=== PATIENT | male | born 2005 | race Two or more races ===

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

== ENCOUNTER 2023-07-18 08:10 | Emergency (ER) | payer MEDICAID ==
[~2023-07-18] VITALS: Ht 180.3 cm; Wt 116.5 kg
[2023-07-18 08:17] VITALS: BP 122/71; PULSE 57; RESP 20; TEMP 98.2; O2SAT 97
[2023-07-18] MEDS ORDERED: KETOROLAC TROMETH 60MG/2ML VIAL IM ONE (10:00)
[2023-07-18] MEDS ORDERED: HYDROcodone-ACET 10/325MG TAB PO ONE (10:00)
[2023-07-18] MEDS ORDERED: ACE3T PO (10:49)
[2023-07-18] MEDS ORDERED: CEPH500C PO (10:49)
[2023-07-18] MEDS ORDERED: IBUP-1455 PO (10:49)
== END 2023-07-18 11:08 | disposition home or self-care (01) ==
LOC: ER 08:10
DX: S30.0XXA Contusion of lower back and pelvis, initial encounter (principal); V86.59XA Driver of other special all-terrain or other off-road motor vehicle injured in nontraffic accident, initial encounter; Y93.89 Activity, other specified; Y92.89 Other specified places as the place of occurrence of the external cause; Y99.8 Other external cause status
CPT/HCPCS: 72100; 72220; 96372; 99284; J1885

== ENCOUNTER 2024-12-11 17:14 | Emergency (ER) | payer MEDICAID ==
[~2024-12-11] VITALS: Ht 182.9 cm; Wt 114.0 kg
[~2024-12-11 17:14] MED LIST: ACE3T PO; CEPH500C PO; IBUP-1455 PO
[2024-12-11 18:28] VITALS: BP 109/58; PULSE 66; RESP 18; TEMP 97; O2SAT 97
[2024-12-11] MEDS ORDERED: IBUP-1456 PO (18:59)
--- NOTE | 2024-12-11 18:59 | ED.PDOC ---
Musculoskeletal HPI Comments 19-YEAR-OLD MALE PRESENTS TO ER WITH COMPLAINTS OF LEFT ANKLE PAIN X1 HOUR. PATIENT REPORTS HE FELT A POPPING SENSATION/SUDDEN ONSET PAIN TO LEFT POSTERIOR ANKLE WHILE HE WAS PLAYING BASKETBALL 1 HOUR PRIOR TO ARRIVAL TO ER. DENIES TRAUMA/FALLS. HE RATES HIS CURRENT PAIN A 4/10 TO LEFT POSTERIOR ANKLE WITH RADIATION UPWARDS TOWARDS HIS LEFT ACHILLES TENDON. DENIES USE OF MEDICATIONS FOR CURRENT SYMPTOMS. PATIENT PRESENTS TO ER AMBULATORY ON ARRIVAL, FAVORING RIGHT LEG ON AMBULATION. DENIES NUMBNESS/TINGLING, LEFT FOOT PAIN, LEFT TIB-FIB PAIN OR ANY FURTHER SYMPTOMS/COMPLAINTS Chief Complaint: Lower Extremity Time Seen by MD: 18:09 Primary Care Provider: REHANA Rajan Notes: Nurses Notes, Medications, Allergies Allergies: Coded Allergies: NO KNOWN ALLERGIES (Unverified , 03/16/17) Home Meds Active Scripts Ibuprofen (Ibuprofen) 800 Mg Tab, 1 TAB PO TID PRN, #30 TAB 0 Refills Prov:ROYAL VILLELA 12/11/24 Acetaminophen W/ Codeine (Tylenol W/Cod #3) 1 Tab Tb, 1 TAB PO Q6HP PRN, #30 TAB Prov:ASIF JACKSON PAC 07/18/23 Ibuprofen Micronized (Ibuprofen) 800 Mg Tab, 800 MG PO Q8HP PRN, #30 TAB Prov:ASIF JACKSON PAC 07/18/23 Cephalexin Monohydrate (Cephalexin) 500 Mg Cap, 1 CAP PO QID for 7 Days, #28 CAP Prov:ASIF JACKSON PAC 07/18/23 Information Source: Patient Mode of Arrival: Ambulatory Past Medical History PAST MEDICAL HISTORY: Denies Surgical History: Denies all surgeries Family History Family History: Unknown Social History Smoker: Non-Smoker Alcohol: Denies ETOH Use Drugs: Denies Drug Use Lives In: Home Constitutional: denies: chills, diaphoresis, fatigue, fever, malaise, sweats, weakness, others EENTM: denies: blurred vision, double vision, ear bleeding, ear discharge, ear drainage, ear pain, ear ringing, eye pain, eye redness, hearing loss, mouth pain, mouth swelling, nasal discharge, nose bleeding, nose congestion, nose pain, photophobia, tearing, throat pain, throat swelling, voice changes, others Respiratory: denies: cough, hemoptysis, orthopnea, SOB at rest, shortness of breath, SOB with excertion, stridor, wheezing, others Cardiovascular: denies: chest pain, dizzy spells, diaphoresis, Dyspnea on exertion, edema, irregular heart beat, left arm pain, lightheadedness, palp itations, PND, syncope, others Gastrointestinal: denies: abdomen distended, abdominal pain, blood streaked bowels, constipated, diarrhea, dysphagia, difficulty swallowing, hematemesis, melena, nausea, poor appetite, poor fluid intake, rectal bleeding, rectal pain, vomiting, others Genitourinary: denies: burning, dysuria, flank pain, frequency, hematuria, incontinence, penile discharge, penile sore, pain, testicle pain, testicle swelling, urgency, others Neurological: denies: dizziness, fainting, headache, left sided numbness, left sided weakness, numbness, paresthesia, pre-existing deficit, right sided numbness, right sided weakness, seizure, speech problems, tingling, tremors, weakness, others Musculoskeletal: reports: others ( STATED IN HPI) Integumetry: denies: bruises, change in color, change in hair/nails, dryness, laceration, lesions, lumps, rash, wounds, others Allergic/Immunocompromised: denies: Difficulty Healing, Frequent Infections, Hives, Itching, others Hematologic/Lymphatic: denies: anemia, blood clots, easy bleeding, easy bruising, swollen glands, others Endocrine: denies: excessive hunger, excessive sweating, excessive thirst, excessive urination, flushing, intolerance to cold, intolerance to heat, unexplained weight gain, unexplained weight loss, others Psychiatric: denies: anxiety, bipolar disorder, depression, hopeless, panic disorder, schizophrenia, sleepless, suicidal, others Physical Exam General Appearance: Mild Distress, Obese HEENT: PERRL/EOMI Neck: Full Range of Motion, Non-Tender, Normal Respiratory: Chest Non-Tender, Lungs Clear, No Accessory Muscle Use, No Respiratory Distress, Normal Breath Sounds Cardiovascular: No Murmur, No Gallop, Regular Rate/Rhythm Breast Exam: Deferred Gastrointestinal: NOT DONE Genitalia: Deferred Pelvic: Deferred Rectal: Deferred Extremities: No calf tenderness, Normal capillary refill Musculoskeletal : Extremity Location: Ankle (TTP/MILD SWELLING NOTED TO LEFT POSTERIOR ANKLE AND REGION OF LEFT ACHILLES TENDON. POSITIVE NUGENT'S TEST ON LEFT. NO TTP TO LEFT FOOT OR LEFT TIB/FIB NOTED. PATIENT FAVORS RIGHT LEG ON AMBULATION DUE TO PAIN LOCALIZED TO LEFT POSTERIOR ANKLE AND TO LEFT ACHILLES TENDON) Neurologic: Alert, product safety coordinator II-XII nml as Tested, No Motor Deficits, No Sensory Deficits Cerebellar Function: Normal Reflexes: Normal Skin: Dry, Normal Color, Warm Peripheral Pulses: 2+ femoral (R), 2+ femoral (L), 2+ dorsalis pedis (R), 2+ dorsalis pedis (L) Lymphatic: No Adenopathy Was a procedure done? Was a procedure done?: No Sedation Sedation?: No Differential Diagnosis EXT Differential Diagnosis: Fracture, Dislocation, Neurovascular injury X-Ray, Labs, Meds, VS Vital Signs Date Time Temp Pulse Resp B/P (MAP) Pulse Ox O2 Delivery O2 Flow Rate FiO2 12/11/24 18:28 97.0 66 18 109/58 (75) 97 97.0 12/11/24 18:28 66 18 97 Room Air 12/11/24 17:40 97.0 66 18 109/57 (74) 97 PATIENT: CANDELARIO CONNOLLYACCT: [id number]: [id number] : 2005 LOC: ER ROOM / BED: / AGE / SEX: 19 / M ADM STATUS: REG ER SERVICE 55 ORDERING PHYSICIAN: ROYAL VILLELA PROCEDURE(s): LANKL - L ANKLE 3 VIEW REASON: LEFT POSTERIOR ANKLE/ACHILLES PAIN ORDER NUMBER(s): [id number], ACCESSION NUMBER(s): [id number] CLINICAL INDICATION: LEFT POSTERIOR ANKLE/ACHILLES PAIN TECHNIQUE: 3 radiographic views of the left ankle were obtained. Comparison: None FINDINGS/IMPRESSION: There is no evidence of acute fracture or dislocation. The visualized joint space is well maintained. The alignment is anatomical. There is no radiopaque foreign body. ATED BY: NIKI JOSHUA DO DICTATED DATE/TIME: 12/11/241937 SIGNED BY: NIKI JOSHUA DO SIGNED DATE/TIME: 12/11/241937 CC: LEFT ANKLE X-RAY REVIEWED LEFT POSTERIOR SHORT-LEG SPLINT APPLIED CRUTCHES ORDERED, PATIENT EDUCATED ON PROPER USE. WAS ADVISED ON NONWEIGHTBEARING LEFT LEG ADVISED ON REST/NO STRENUOUS ACTIVITY, ELEVATION AND ALTERNATE ICE ON/OFF NEEDED FOR PAIN/SWELLING ADVISED TO FOLLOW UP WITH PCP AND ORTHOPEDICS IN 1-2 DAYS PATIENT VERBALIZED UNDERSTANDING AND AGREEABLE WITH CURRENT PLAN OF CARE ADVISED TO RETURN TO ER IMMEDIATELY IF SYMPTOMS WORSEN Images Reviewed?: Images reviewed and evaluated by me Time of 1ST Reevaluation: 18:24 Reevaluation 1ST: N/A Patient Education/Counseling: Diagnosis, Treatment, Prognosis, Need For Follow Up Family Education/Counseling: No Family Present Departure 1 Departure Time of Disposition: 18:52 Impression: Primary Impression: Achilles tendon rupture Qualified Codes: S86.012A - Strain of left Achilles tendon, initial encounter Disposition: HOME / SELF CARE / HOMELESS Condition: Stable e-Prescriptions Ibuprofen (Ibuprofen) 800 Mg Tab 1 TAB PO TID PRN, #30 TAB 0 Refills Prov: ROYAL VILLELA 12/11/24 Discharged With: Friend Critical Care Note Critical Care Time?: No Stability Stability form required: No Heart Score Heart Score: Heart Score Response (Comments) Value History N/A 0 EKG N/A 0 Age N/A 0 Risk Factors N/A 0 Troponin N/A 0 Total 0 ROYAL VILLELA Dec 11, 2024 18:59
--- NOTE | 2024-12-11 19:41 | DVH ---
CLINICAL INDICATION: LEFT POSTERIOR ANKLE/ACHILLES PAIN TECHNIQUE: 3 radiographic views of the left ankle were obtained. Comparison: None FINDINGS/IMPRESSION: There is no evidence of acute fracture or dislocation. The visualized joint space is well maintained. The alignment is anatomical. There is no radiopaque foreign body.
== END 2024-12-11 20:08 | disposition home or self-care (01) ==
LOC: ER 17:14
DX: S86.012A Strain of left Achilles tendon, initial encounter (principal); X58.XXXA Exposure to other specified factors, initial encounter; Y93.67 Activity, basketball; Y92.89 Other specified places as the place of occurrence of the external cause; Y99.8 Other external cause status
CPT/HCPCS: 29515; 73610